=== PATIENT | male | born 1960 | race African-American/Black ===

== ENCOUNTER 2022-08-16 12:24 | Inpatient (IN) | payer OTHER ==
[2022-08-16 16:52] VITALS: BMI 34.5
[2022-08-16] MEDS ORDERED: guaiFENesin 200 MG/10 ML 10 ML UNIT-DOSE CUPS PO PRN (18:27)
[2022-08-16] MEDS ORDERED: hydrOXYzine PAMOATE 25 MG CAPSULE (FP) PO PRN (18:27)
[2022-08-16] MEDS ORDERED: POLYETHYLENE GLYCOL (HEALTHYLAX) 3350 17 GM PACKET PO PRN (18:27)
[2022-08-16] MEDS ORDERED: MAG HYDROX/AL HYDROX/SIMETH 30 ML UNIT-DOSE CUP PO PRN (18:27)
[2022-08-16] MEDS ORDERED: LOPERAMIDE HCL 2 MG CAPSULE PO PRN (18:27)
[2022-08-16] MEDS ORDERED: ACETAMINOPHEN 325 MG TABLET (FP) PO PRN (18:27)
[2022-08-16] MEDS ORDERED: MAGNESIUM HYDROX 2400MG/30ML ORAL SUSPENSION 30 ML CUP PO PRN (18:27)
[2022-08-16] MEDS ORDERED: P-EPHED 60MG/TRIPROLIDI 2.5MG TABLET PO PRN (18:27)
[2022-08-16] MEDS ORDERED: BENZOCAINE/MENTHOL (CHLORASEPTIC ) LOZENGE MM PRN (18:27)
[2022-08-17] MEDS ORDERED: ATORVASTATIN CA 40 MG TABLET (FP) ONE ×2 (00:20→19:54)
[2022-08-17] MEDS: ATORVASTATIN CA 80 MG TABLET (FP) PO SCH ×2 (00:40→21:37)
[2022-08-17] MEDS: hydrALAZINE HCL 50 MG TABLET (FP) PO SCH ×4 (00:43→21:37)
[2022-08-17] MEDS: MELATONIN 5 MG TABLETS PO SCH ×2 (00:44→21:38)
[2022-08-17] MEDS: THIAMINE HCL 100 MG TABLET (FP) PO SCH ×2 (00:45→21:37)
[2022-08-17] MEDS ORDERED: TUBERCULIN PPD 5 TU/0.1ML VIAL ID ONE (00:46)
[2022-08-17] MEDS ORDERED: POTASSIUM CHLORIDE TABS 10 MEQ TABLET.ER (FP) PO SCH (10:00)
[2022-08-17] MEDS: PRENATAL VITAMINS W/ FOLIC ACID TABLET (FP) PO SCH (10:16)
[2022-08-17] MEDS: ASPIRIN 81 MG CHEWABLE TABLETS PO SCH (10:17)
[2022-08-17] MEDS: amLODIPine BESYLATE 10 MG TABLET (FP) PO SCH (10:17)
[2022-08-17] MEDS: TAMSULOSIN HCL 0.4 MG CAP PO SCH (10:17)
[2022-08-17] MEDS: LISINOPRIL 20 MG TABLET PO SCH (10:17)
[2022-08-17 11:16] LABS: HEMATOCRIT 39.1 % (35.4-49); HEMOGLOBIN 13.1 GM/dL (11.7-16.9); MCH 29.1 pg (25.7-33.7); MCHC 33.4 g/dl (32.0-35.9); MEAN CELL VOLUME 86.9 fl (80-96); MEAN PLT VOLUME 8.2 fl (7.5-11.1); PLATELET COUNT 203 10^3/uL (134-434); RDW 14.4 % (11.9-15.9); WHITE BLOOD COUNT 5.8 K/mm3 (4.0-10.0)
[2022-08-17 11:19] LABS: PH,URINE 5.5 (5.0-8.0); URINE APPEARANCE CLEAR; URINE BILIRUBIN NEGATIVE (NEGATIVE); URINE COLOR YELLOW; URINE GLUCOSE (UA) NEGATIVE (NEGATIVE); URINE KETONE NEGATIVE (NEGATIVE); URINE LEUK ESTERASE NEGATIVE (NEGATIVE); URINE NITRITE NEGATIVE (NEGATIVE); URINE PROTEIN TRACE (NEGATIVE)
[2022-08-17 11:30] LABS: ALBUMIN 3.6 g/dl (3.4-5.0)
[2022-08-17 11:33] LABS: CREATININE 2.4 mg/dL (0.55-1.3)
[2022-08-17 11:34] LABS: URIC ACID 7.6 mg/dL (2.6-7.2)
[2022-08-17] MEDS: ALLOPURINOL 100 MG TABLET (FP) PO SCH (11:34)
[2022-08-17 11:35] LABS: BILIRUBIN,TOTAL 0.8 mg/dL (0.2-1); TOT PROT 7.3 g/dl (6.4-8.2)
[2022-08-17] MEDS: POTASSIUM CHLORIDE TABS 20 MEQ TABLET.ER (FP) PO SCH (11:36)
[2022-08-18] MEDS: hydrALAZINE HCL 50 MG TABLET (FP) PO SCH ×4 (06:10→23:23)
[2022-08-18] MEDS: amLODIPine BESYLATE 10 MG TABLET (FP) PO SCH (09:47)
[2022-08-18] MEDS: TAMSULOSIN HCL 0.4 MG CAP PO SCH (09:47)
[2022-08-18] MEDS: PRENATAL VITAMINS W/ FOLIC ACID TABLET (FP) PO SCH (09:47)
[2022-08-18] MEDS: ASPIRIN 81 MG CHEWABLE TABLETS PO SCH (09:48)
[2022-08-18] MEDS: LISINOPRIL 20 MG TABLET PO SCH (09:48)
[2022-08-18] MEDS: POTASSIUM CHLORIDE TABS 20 MEQ TABLET.ER (FP) PO SCH (09:48)
[2022-08-18] MEDS: ALLOPURINOL 100 MG TABLET (FP) PO SCH (09:48)
[2022-08-18] MEDS ORDERED: ATORVASTATIN CA 40 MG TABLET (FP) ONE (20:32)
[2022-08-18] MEDS: MELATONIN 5 MG TABLETS PO SCH ×2 (21:23→23:23)
[2022-08-18] MEDS: THIAMINE HCL 100 MG TABLET (FP) PO SCH ×2 (21:23→23:23)
[2022-08-18] MEDS: ATORVASTATIN CA 80 MG TABLET (FP) PO SCH ×2 (21:23→23:23)
[2022-08-19] MEDS: hydrALAZINE HCL 50 MG TABLET (FP) PO SCH ×3 (07:03→21:53)
[2022-08-19] MEDS: PRENATAL VITAMINS W/ FOLIC ACID TABLET (FP) PO SCH (10:29)
[2022-08-19] MEDS: LISINOPRIL 20 MG TABLET PO SCH (10:30)
[2022-08-19] MEDS: amLODIPine BESYLATE 10 MG TABLET (FP) PO SCH (10:30)
[2022-08-19] MEDS: ASPIRIN 81 MG CHEWABLE TABLETS PO SCH (10:30)
[2022-08-19] MEDS: POTASSIUM CHLORIDE TABS 20 MEQ TABLET.ER (FP) PO SCH (10:30)
[2022-08-19] MEDS: TAMSULOSIN HCL 0.4 MG CAP PO SCH (10:30)
[2022-08-19] MEDS: SERTRALINE HCL 50 MG TABLET (FP) PO SCH (10:30)
[2022-08-19] MEDS: ALLOPURINOL 100 MG TABLET (FP) PO SCH (10:31)
[2022-08-19] MEDS: MELATONIN 5 MG TABLETS PO SCH (21:53)
[2022-08-19] MEDS: THIAMINE HCL 100 MG TABLET (FP) PO SCH (21:53)
[2022-08-19] MEDS: ATORVASTATIN CA 80 MG TABLET (FP) PO SCH (21:54)
[2022-08-20] MEDS: hydrALAZINE HCL 50 MG TABLET (FP) PO SCH ×3 (06:24→21:24)
[2022-08-20] MEDS: ASPIRIN 81 MG CHEWABLE TABLETS PO SCH (10:10)
[2022-08-20] MEDS: TAMSULOSIN HCL 0.4 MG CAP PO SCH (10:10)
[2022-08-20] MEDS: POTASSIUM CHLORIDE TABS 20 MEQ TABLET.ER (FP) PO SCH (10:10)
[2022-08-20] MEDS: PRENATAL VITAMINS W/ FOLIC ACID TABLET (FP) PO SCH (10:11)
[2022-08-20] MEDS: LISINOPRIL 20 MG TABLET PO SCH (10:11)
[2022-08-20] MEDS: ALLOPURINOL 100 MG TABLET (FP) PO SCH (10:11)
[2022-08-20] MEDS: amLODIPine BESYLATE 10 MG TABLET (FP) PO SCH (10:11)
[2022-08-20] MEDS: SERTRALINE HCL 50 MG TABLET (FP) PO SCH (10:11)
[2022-08-20] MEDS ORDERED: ATORVASTATIN CA 40 MG TABLET (FP) ONE (20:11)
[2022-08-20] MEDS: ATORVASTATIN CA 80 MG TABLET (FP) PO SCH (21:24)
[2022-08-20] MEDS: MELATONIN 5 MG TABLETS PO SCH (21:24)
[2022-08-20] MEDS: THIAMINE HCL 100 MG TABLET (FP) PO SCH (21:24)
[2022-08-21] MEDS: hydrALAZINE HCL 50 MG TABLET (FP) PO SCH ×3 (07:19→21:26)
[2022-08-21] MEDS: POTASSIUM CHLORIDE TABS 20 MEQ TABLET.ER (FP) PO SCH (09:56)
[2022-08-21] MEDS: PRENATAL VITAMINS W/ FOLIC ACID TABLET (FP) PO SCH (09:56)
[2022-08-21] MEDS: ASPIRIN 81 MG CHEWABLE TABLETS PO SCH (09:56)
[2022-08-21] MEDS: LISINOPRIL 20 MG TABLET PO SCH (09:57)
[2022-08-21] MEDS: SERTRALINE HCL 50 MG TABLET (FP) PO SCH (09:57)
[2022-08-21] MEDS: amLODIPine BESYLATE 10 MG TABLET (FP) PO SCH (09:57)
[2022-08-21] MEDS: TAMSULOSIN HCL 0.4 MG CAP PO SCH (09:57)
[2022-08-21] MEDS: ALLOPURINOL 100 MG TABLET (FP) PO SCH (10:55)
[2022-08-21] MEDS: predniSONE 10 MG TABLET (UD) PO SCH (12:40)
[2022-08-21] MEDS ORDERED: ATORVASTATIN CA 40 MG TABLET (FP) ONE (20:06)
[2022-08-21] MEDS: MELATONIN 5 MG TABLETS PO SCH (21:25)
[2022-08-21] MEDS: THIAMINE HCL 100 MG TABLET (FP) PO SCH (21:26)
[2022-08-21] MEDS: ATORVASTATIN CA 80 MG TABLET (FP) PO SCH (21:26)
[2022-08-22] MEDS: hydrALAZINE HCL 50 MG TABLET (FP) PO SCH ×3 (06:09→22:09)
[2022-08-22] MEDS: TAMSULOSIN HCL 0.4 MG CAP PO SCH (09:49)
[2022-08-22] MEDS: amLODIPine BESYLATE 10 MG TABLET (FP) PO SCH (09:49)
[2022-08-22] MEDS: POTASSIUM CHLORIDE TABS 20 MEQ TABLET.ER (FP) PO SCH (09:49)
[2022-08-22] MEDS: predniSONE 10 MG TABLET (UD) PO SCH (09:49)
[2022-08-22] MEDS: ASPIRIN 81 MG CHEWABLE TABLETS PO SCH (09:49)
[2022-08-22] MEDS: SERTRALINE HCL 50 MG TABLET (FP) PO SCH (09:49)
[2022-08-22] MEDS: ALLOPURINOL 100 MG TABLET (FP) PO SCH (09:49)
[2022-08-22] MEDS: PRENATAL VITAMINS W/ FOLIC ACID TABLET (FP) PO SCH (09:50)
[2022-08-22] MEDS: LISINOPRIL 20 MG TABLET PO SCH (09:50)
[2022-08-22] MEDS ORDERED: ATORVASTATIN CA 40 MG TABLET (FP) ONE (20:17)
[2022-08-22] MEDS: ATORVASTATIN CA 80 MG TABLET (FP) PO SCH (22:09)
[2022-08-22] MEDS: THIAMINE HCL 100 MG TABLET (FP) PO SCH (22:09)
[2022-08-22] MEDS: MELATONIN 5 MG TABLETS PO SCH (22:10)
[2022-08-23] MEDS: hydrALAZINE HCL 50 MG TABLET (FP) PO SCH ×3 (06:23→21:44)
[2022-08-23] MEDS: POTASSIUM CHLORIDE TABS 20 MEQ TABLET.ER (FP) PO SCH (10:21)
[2022-08-23] MEDS: LISINOPRIL 20 MG TABLET PO SCH (10:21)
[2022-08-23] MEDS: PRENATAL VITAMINS W/ FOLIC ACID TABLET (FP) PO SCH (10:21)
[2022-08-23] MEDS: amLODIPine BESYLATE 10 MG TABLET (FP) PO SCH (10:21)
[2022-08-23] MEDS: ASPIRIN 81 MG CHEWABLE TABLETS PO SCH (10:22)
[2022-08-23] MEDS: SERTRALINE HCL 50 MG TABLET (FP) PO SCH (10:22)
[2022-08-23] MEDS: TAMSULOSIN HCL 0.4 MG CAP PO SCH (10:22)
[2022-08-23] MEDS: ALLOPURINOL 100 MG TABLET (FP) PO SCH (10:22)
[2022-08-23] MEDS: predniSONE 10 MG TABLET (UD) PO SCH (10:24)
[2022-08-23] MEDS ORDERED: predniSONE 20 MG TABLET (UD) PO ONE (12:00)
[2022-08-23 15:39] LABS: CALCIUM 8.5 mg/dL (8.5-10.1)
[2022-08-23 15:40] LABS: BLOOD UREA NITROGEN 29.7 mg/dL (7-18)
[2022-08-23 15:42] LABS: ALBUMIN 3.2 g/dl (3.4-5.0)
[2022-08-23 15:43] LABS: CREATININE 1.7 mg/dL (0.55-1.3)
[2022-08-23 15:44] LABS: BILIRUBIN,TOTAL 0.9 mg/dL (0.2-1)
[2022-08-23 15:45] LABS: TOT PROT 6.7 g/dl (6.4-8.2)
[2022-08-23] MEDS ORDERED: ATORVASTATIN CA 40 MG TABLET (FP) ONE (19:31)
[2022-08-23] MEDS: MELATONIN 5 MG TABLETS PO SCH (21:44)
[2022-08-23] MEDS: THIAMINE HCL 100 MG TABLET (FP) PO SCH (21:45)
[2022-08-23] MEDS: ATORVASTATIN CA 80 MG TABLET (FP) PO SCH (21:45)
[2022-08-24] MEDS: hydrALAZINE HCL 50 MG TABLET (FP) PO SCH ×3 (06:35→22:00)
[2022-08-24] MEDS ORDERED: predniSONE 5 MG TABLET (UD) PO ONE (10:00)
[2022-08-24] MEDS: PRENATAL VITAMINS W/ FOLIC ACID TABLET (FP) PO SCH (10:24)
[2022-08-24] MEDS: ALLOPURINOL 100 MG TABLET (FP) PO SCH (10:25)
[2022-08-24] MEDS: TAMSULOSIN HCL 0.4 MG CAP PO SCH (10:25)
[2022-08-24] MEDS: LISINOPRIL 20 MG TABLET PO SCH (10:25)
[2022-08-24] MEDS: SERTRALINE HCL 50 MG TABLET (FP) PO SCH (10:25)
[2022-08-24] MEDS: POTASSIUM CHLORIDE TABS 20 MEQ TABLET.ER (FP) PO SCH (10:25)
[2022-08-24] MEDS: ASPIRIN COATED 81 MG TABLET.EC PO SCH (10:25)
[2022-08-24] MEDS: amLODIPine BESYLATE 10 MG TABLET (FP) PO SCH (10:25)
[2022-08-24] MEDS: ATORVASTATIN CA 80 MG TABLET (FP) PO SCH (22:00)
[2022-08-24] MEDS: THIAMINE HCL 100 MG TABLET (FP) PO SCH (22:00)
[2022-08-24] MEDS: MELATONIN 5 MG TABLETS PO SCH (22:00)
[2022-08-25] MEDS: hydrALAZINE HCL 50 MG TABLET (FP) PO SCH ×3 (06:55→21:25)
[2022-08-25] MEDS ORDERED: predniSONE 10 MG TABLET (UD) PO ONE (10:00)
[2022-08-25] MEDS: SERTRALINE HCL 50 MG TABLET (FP) PO SCH (10:16)
[2022-08-25] MEDS: PRENATAL VITAMINS W/ FOLIC ACID TABLET (FP) PO SCH (10:17)
[2022-08-25] MEDS: ALLOPURINOL 100 MG TABLET (FP) PO SCH (10:17)
[2022-08-25] MEDS: ASPIRIN COATED 81 MG TABLET.EC PO SCH (10:17)
[2022-08-25] MEDS: amLODIPine BESYLATE 10 MG TABLET (FP) PO SCH (10:17)
[2022-08-25] MEDS: TAMSULOSIN HCL 0.4 MG CAP PO SCH (10:17)
[2022-08-25] MEDS: POTASSIUM CHLORIDE TABS 20 MEQ TABLET.ER (FP) PO SCH (10:17)
[2022-08-25] MEDS: LISINOPRIL 20 MG TABLET PO SCH (10:17)
[2022-08-25] MEDS ORDERED: ATORVASTATIN CA 40 MG TABLET (FP) ONE (19:31)
[2022-08-25] MEDS: THIAMINE HCL 100 MG TABLET (FP) PO SCH (21:23)
[2022-08-25] MEDS: ATORVASTATIN CA 80 MG TABLET (FP) PO SCH (21:24)
[2022-08-25] MEDS: MELATONIN 5 MG TABLETS PO SCH (21:24)
[2022-08-26] MEDS: hydrALAZINE HCL 50 MG TABLET (FP) PO SCH ×3 (07:28→21:38)
[2022-08-26] MEDS ORDERED: predniSONE 5 MG TABLET (UD) PO ONE (10:00)
[2022-08-26] MEDS: LISINOPRIL 20 MG TABLET PO SCH (10:34)
[2022-08-26] MEDS: amLODIPine BESYLATE 10 MG TABLET (FP) PO SCH (10:34)
[2022-08-26] MEDS: SERTRALINE HCL 50 MG TABLET (FP) PO SCH (10:34)
[2022-08-26] MEDS: TAMSULOSIN HCL 0.4 MG CAP PO SCH (10:34)
[2022-08-26] MEDS: ASPIRIN COATED 81 MG TABLET.EC PO SCH (10:34)
[2022-08-26] MEDS: POTASSIUM CHLORIDE TABS 20 MEQ TABLET.ER (FP) PO SCH (10:34)
[2022-08-26] MEDS: PRENATAL VITAMINS W/ FOLIC ACID TABLET (FP) PO SCH (10:34)
[2022-08-26] MEDS: ALLOPURINOL 100 MG TABLET (FP) PO SCH (10:50)
[2022-08-26] MEDS ORDERED: ATORVASTATIN CA 40 MG TABLET (FP) ONE (20:47)
[2022-08-26] MEDS: THIAMINE HCL 100 MG TABLET (FP) PO SCH (21:38)
[2022-08-26] MEDS: MELATONIN 5 MG TABLETS PO SCH (21:39)
[2022-08-26] MEDS: ATORVASTATIN CA 80 MG TABLET (FP) PO SCH (21:39)
[2022-08-27] MEDS: hydrALAZINE HCL 50 MG TABLET (FP) PO SCH ×3 (06:04→21:45)
[2022-08-27] MEDS: POTASSIUM CHLORIDE TABS 20 MEQ TABLET.ER (FP) PO SCH (09:55)
[2022-08-27] MEDS: PRENATAL VITAMINS W/ FOLIC ACID TABLET (FP) PO SCH (09:55)
[2022-08-27] MEDS: LISINOPRIL 20 MG TABLET PO SCH (09:55)
[2022-08-27] MEDS: SERTRALINE HCL 50 MG TABLET (FP) PO SCH (09:55)
[2022-08-27] MEDS: amLODIPine BESYLATE 10 MG TABLET (FP) PO SCH (09:56)
[2022-08-27] MEDS: TAMSULOSIN HCL 0.4 MG CAP PO SCH (09:56)
[2022-08-27] MEDS: ASPIRIN COATED 81 MG TABLET.EC PO SCH (09:56)
[2022-08-27] MEDS: ALLOPURINOL 100 MG TABLET (FP) PO SCH (09:56)
[2022-08-27] MEDS ORDERED: ATORVASTATIN CA 40 MG TABLET (FP) ONE (20:28)
[2022-08-27] MEDS: ATORVASTATIN CA 80 MG TABLET (FP) PO SCH (21:45)
[2022-08-27] MEDS: THIAMINE HCL 100 MG TABLET (FP) PO SCH (21:45)
[2022-08-27] MEDS: MELATONIN 5 MG TABLETS PO SCH (21:46)
[2022-08-28] MEDS: hydrALAZINE HCL 50 MG TABLET (FP) PO SCH ×3 (06:13→21:23)
[2022-08-28] MEDS: PRENATAL VITAMINS W/ FOLIC ACID TABLET (FP) PO SCH (09:54)
[2022-08-28] MEDS: SERTRALINE HCL 50 MG TABLET (FP) PO SCH (09:55)
[2022-08-28] MEDS: amLODIPine BESYLATE 10 MG TABLET (FP) PO SCH (09:55)
[2022-08-28] MEDS: ASPIRIN COATED 81 MG TABLET.EC PO SCH (09:55)
[2022-08-28] MEDS: POTASSIUM CHLORIDE TABS 20 MEQ TABLET.ER (FP) PO SCH (09:55)
[2022-08-28] MEDS: LISINOPRIL 20 MG TABLET PO SCH (09:56)
[2022-08-28] MEDS: TAMSULOSIN HCL 0.4 MG CAP PO SCH (09:56)
[2022-08-28] MEDS: ALLOPURINOL 100 MG TABLET (FP) PO SCH (09:57)
[2022-08-28] MEDS ORDERED: ATORVASTATIN CA 40 MG TABLET (FP) ONE (20:24)
[2022-08-28] MEDS: ATORVASTATIN CA 80 MG TABLET (FP) PO SCH (21:21)
[2022-08-28] MEDS: MELATONIN 5 MG TABLETS PO SCH (21:21)
[2022-08-28] MEDS: THIAMINE HCL 100 MG TABLET (FP) PO SCH (21:22)
[2022-08-29] MEDS: hydrALAZINE HCL 50 MG TABLET (FP) PO SCH ×3 (05:42→21:14)
[2022-08-29] MEDS: ASPIRIN COATED 81 MG TABLET.EC PO SCH (09:59)
[2022-08-29] MEDS: PRENATAL VITAMINS W/ FOLIC ACID TABLET (FP) PO SCH (10:00)
[2022-08-29] MEDS: POTASSIUM CHLORIDE TABS 20 MEQ TABLET.ER (FP) PO SCH (10:00)
[2022-08-29] MEDS: SERTRALINE HCL 50 MG TABLET (FP) PO SCH (10:00)
[2022-08-29] MEDS: amLODIPine BESYLATE 10 MG TABLET (FP) PO SCH (10:00)
[2022-08-29] MEDS: ALLOPURINOL 100 MG TABLET (FP) PO SCH (10:00)
[2022-08-29] MEDS: LISINOPRIL 20 MG TABLET PO SCH (10:00)
[2022-08-29] MEDS: TAMSULOSIN HCL 0.4 MG CAP PO SCH (10:00)
[2022-08-29] MEDS: ATORVASTATIN CA 80 MG TABLET (FP) PO SCH (21:14)
[2022-08-29] MEDS: THIAMINE HCL 100 MG TABLET (FP) PO SCH (21:14)
[2022-08-29] MEDS: MELATONIN 5 MG TABLETS PO SCH (21:14)
[2022-08-30] MEDS: hydrALAZINE HCL 50 MG TABLET (FP) PO SCH ×3 (06:14→21:34)
[2022-08-30] MEDS: ASPIRIN COATED 81 MG TABLET.EC PO SCH (09:48)
[2022-08-30] MEDS: amLODIPine BESYLATE 10 MG TABLET (FP) PO SCH (09:48)
[2022-08-30] MEDS: PRENATAL VITAMINS W/ FOLIC ACID TABLET (FP) PO SCH (09:48)
[2022-08-30] MEDS: TAMSULOSIN HCL 0.4 MG CAP PO SCH (09:49)
[2022-08-30] MEDS: LISINOPRIL 20 MG TABLET PO SCH (09:49)
[2022-08-30] MEDS: SERTRALINE HCL 50 MG TABLET (FP) PO SCH (09:49)
[2022-08-30] MEDS: ALLOPURINOL 100 MG TABLET (FP) PO SCH (09:49)
[2022-08-30] MEDS: POTASSIUM CHLORIDE TABS 20 MEQ TABLET.ER (FP) PO SCH (09:49)
[2022-08-30] MEDS ORDERED: ATORVASTATIN CA 40 MG TABLET (FP) ONE (20:10)
[2022-08-30] MEDS: ATORVASTATIN CA 80 MG TABLET (FP) PO SCH (21:34)
[2022-08-30] MEDS: THIAMINE HCL 100 MG TABLET (FP) PO SCH (21:34)
[2022-08-30] MEDS: MELATONIN 5 MG TABLETS PO SCH (21:34)
[2022-08-31] MEDS: hydrALAZINE HCL 50 MG TABLET (FP) PO SCH ×3 (05:57→21:28)
[2022-08-31] MEDS: SERTRALINE HCL 50 MG TABLET (FP) PO SCH (10:02)
[2022-08-31] MEDS: LISINOPRIL 20 MG TABLET PO SCH (10:03)
[2022-08-31] MEDS: POTASSIUM CHLORIDE TABS 20 MEQ TABLET.ER (FP) PO SCH (10:03)
[2022-08-31] MEDS: amLODIPine BESYLATE 10 MG TABLET (FP) PO SCH (10:03)
[2022-08-31] MEDS: PRENATAL VITAMINS W/ FOLIC ACID TABLET (FP) PO SCH (10:03)
[2022-08-31] MEDS: ASPIRIN COATED 81 MG TABLET.EC PO SCH (10:03)
[2022-08-31] MEDS: ALLOPURINOL 100 MG TABLET (FP) PO SCH (10:04)
[2022-08-31] MEDS: TAMSULOSIN HCL 0.4 MG CAP PO SCH (10:05)
[2022-08-31] MEDS: ATORVASTATIN CA 80 MG TABLET (FP) PO SCH (21:28)
[2022-08-31] MEDS: MELATONIN 5 MG TABLETS PO SCH (21:28)
[2022-08-31] MEDS: THIAMINE HCL 100 MG TABLET (FP) PO SCH (21:28)
[2022-09-01] MEDS: hydrALAZINE HCL 50 MG TABLET (FP) PO SCH ×3 (06:01→21:28)
[2022-09-01] MEDS: ASPIRIN COATED 81 MG TABLET.EC PO SCH (09:54)
[2022-09-01] MEDS: SERTRALINE HCL 50 MG TABLET (FP) PO SCH (09:54)
[2022-09-01] MEDS: ALLOPURINOL 100 MG TABLET (FP) PO SCH (09:54)
[2022-09-01] MEDS: LISINOPRIL 20 MG TABLET PO SCH (09:54)
[2022-09-01] MEDS: TAMSULOSIN HCL 0.4 MG CAP PO SCH (09:54)
[2022-09-01] MEDS: POTASSIUM CHLORIDE TABS 20 MEQ TABLET.ER (FP) PO SCH (09:54)
[2022-09-01] MEDS: amLODIPine BESYLATE 10 MG TABLET (FP) PO SCH (09:54)
[2022-09-01] MEDS: PRENATAL VITAMINS W/ FOLIC ACID TABLET (FP) PO SCH (09:55)
[2022-09-01] MEDS ORDERED: ATORVASTATIN CA 40 MG TABLET (FP) ONE (19:49)
[2022-09-01] MEDS: ATORVASTATIN CA 80 MG TABLET (FP) PO SCH (21:28)
[2022-09-01] MEDS: THIAMINE HCL 100 MG TABLET (FP) PO SCH (21:28)
[2022-09-01] MEDS: MELATONIN 5 MG TABLETS PO SCH (21:28)
[2022-09-02] MEDS: hydrALAZINE HCL 50 MG TABLET (FP) PO SCH ×3 (06:07→21:37)
[2022-09-02] MEDS: PRENATAL VITAMINS W/ FOLIC ACID TABLET (FP) PO SCH (09:54)
[2022-09-02] MEDS: SERTRALINE HCL 50 MG TABLET (FP) PO SCH (09:54)
[2022-09-02] MEDS: POTASSIUM CHLORIDE TABS 20 MEQ TABLET.ER (FP) PO SCH (09:54)
[2022-09-02] MEDS: ALLOPURINOL 100 MG TABLET (FP) PO SCH (09:55)
[2022-09-02] MEDS: ASPIRIN COATED 81 MG TABLET.EC PO SCH (09:55)
[2022-09-02] MEDS: LISINOPRIL 20 MG TABLET PO SCH (09:55)
[2022-09-02] MEDS: amLODIPine BESYLATE 10 MG TABLET (FP) PO SCH (09:55)
[2022-09-02] MEDS: TAMSULOSIN HCL 0.4 MG CAP PO SCH (09:55)
[2022-09-02] MEDS: ATORVASTATIN CA 80 MG TABLET (FP) PO SCH (21:37)
[2022-09-02] MEDS: MELATONIN 5 MG TABLETS PO SCH (21:37)
[2022-09-02] MEDS: THIAMINE HCL 100 MG TABLET (FP) PO SCH (21:37)
[2022-09-03] MEDS: hydrALAZINE HCL 50 MG TABLET (FP) PO SCH ×3 (06:11→21:17)
[2022-09-03] MEDS: ASPIRIN COATED 81 MG TABLET.EC PO SCH (09:48)
[2022-09-03] MEDS: SERTRALINE HCL 50 MG TABLET (FP) PO SCH (09:48)
[2022-09-03] MEDS: LISINOPRIL 20 MG TABLET PO SCH (09:48)
[2022-09-03] MEDS: amLODIPine BESYLATE 10 MG TABLET (FP) PO SCH (09:48)
[2022-09-03] MEDS: POTASSIUM CHLORIDE TABS 20 MEQ TABLET.ER (FP) PO SCH (09:48)
[2022-09-03] MEDS: ALLOPURINOL 100 MG TABLET (FP) PO SCH (09:48)
[2022-09-03] MEDS: TAMSULOSIN HCL 0.4 MG CAP PO SCH (09:48)
[2022-09-03] MEDS: PRENATAL VITAMINS W/ FOLIC ACID TABLET (FP) PO SCH (09:48)
[2022-09-03] MEDS: MELATONIN 5 MG TABLETS PO SCH (21:17)
[2022-09-03] MEDS: THIAMINE HCL 100 MG TABLET (FP) PO SCH (21:17)
[2022-09-03] MEDS: ATORVASTATIN CA 80 MG TABLET (FP) PO SCH (21:17)
[2022-09-04] MEDS: hydrALAZINE HCL 50 MG TABLET (FP) PO SCH ×3 (06:28→21:20)
[2022-09-04] MEDS: POTASSIUM CHLORIDE TABS 20 MEQ TABLET.ER (FP) PO SCH (10:18)
[2022-09-04] MEDS: TAMSULOSIN HCL 0.4 MG CAP PO SCH (10:18)
[2022-09-04] MEDS: ASPIRIN COATED 81 MG TABLET.EC PO SCH (10:18)
[2022-09-04] MEDS: PRENATAL VITAMINS W/ FOLIC ACID TABLET (FP) PO SCH (10:19)
[2022-09-04] MEDS: LISINOPRIL 20 MG TABLET PO SCH (10:19)
[2022-09-04] MEDS: amLODIPine BESYLATE 10 MG TABLET (FP) PO SCH (10:19)
[2022-09-04] MEDS: ALLOPURINOL 100 MG TABLET (FP) PO SCH (10:20)
[2022-09-04] MEDS: SERTRALINE HCL 50 MG TABLET (FP) PO SCH (10:20)
[2022-09-04] MEDS ORDERED: ATORVASTATIN CA 40 MG TABLET (FP) ONE (20:44)
[2022-09-04] MEDS: THIAMINE HCL 100 MG TABLET (FP) PO SCH (21:20)
[2022-09-04] MEDS: MELATONIN 5 MG TABLETS PO SCH (21:20)
[2022-09-04] MEDS: ATORVASTATIN CA 80 MG TABLET (FP) PO SCH (21:21)
[2022-09-05] MEDS: hydrALAZINE HCL 50 MG TABLET (FP) PO SCH ×3 (06:05→21:23)
[2022-09-05] MEDS: ASPIRIN COATED 81 MG TABLET.EC PO SCH (10:19)
[2022-09-05] MEDS: TAMSULOSIN HCL 0.4 MG CAP PO SCH (10:19)
[2022-09-05] MEDS: PRENATAL VITAMINS W/ FOLIC ACID TABLET (FP) PO SCH (10:20)
[2022-09-05] MEDS: amLODIPine BESYLATE 10 MG TABLET (FP) PO SCH (10:20)
[2022-09-05] MEDS: LISINOPRIL 20 MG TABLET PO SCH (10:20)
[2022-09-05] MEDS: ALLOPURINOL 100 MG TABLET (FP) PO SCH (10:20)
[2022-09-05] MEDS: SERTRALINE HCL 50 MG TABLET (FP) PO SCH (10:20)
[2022-09-05] MEDS: POTASSIUM CHLORIDE TABS 20 MEQ TABLET.ER (FP) PO SCH (10:20)
[2022-09-05 20:42] VITALS: RESP 16
[2022-09-05] MEDS: THIAMINE HCL 100 MG TABLET (FP) PO SCH (21:23)
[2022-09-05] MEDS: ATORVASTATIN CA 80 MG TABLET (FP) PO SCH (21:23)
[2022-09-05] MEDS: MELATONIN 5 MG TABLETS PO SCH (21:23)
[2022-09-05] MEDS: BACITRACIN ZINC 15 GM TUBE TOPICAL OINTMENT TP SCH (21:24)
[2022-09-06] MEDS: hydrALAZINE HCL 50 MG TABLET (FP) PO SCH (06:25)
[2022-09-06 07:11] VITALS: BP 149/85; PULSE 65; TEMP 96.4
[2022-09-06] MEDS: TAMSULOSIN HCL 0.4 MG CAP PO SCH (09:45)
[2022-09-06] MEDS: LISINOPRIL 20 MG TABLET PO SCH (09:45)
[2022-09-06] MEDS: SERTRALINE HCL 50 MG TABLET (FP) PO SCH (09:45)
[2022-09-06] MEDS: ASPIRIN COATED 81 MG TABLET.EC PO SCH (09:45)
[2022-09-06] MEDS: amLODIPine BESYLATE 10 MG TABLET (FP) PO SCH (09:45)
[2022-09-06] MEDS: POTASSIUM CHLORIDE TABS 20 MEQ TABLET.ER (FP) PO SCH (09:45)
[2022-09-06] MEDS: ALLOPURINOL 100 MG TABLET (FP) PO SCH (09:46)
[2022-09-06] MEDS: PRENATAL VITAMINS W/ FOLIC ACID TABLET (FP) PO SCH (09:47)
[2022-09-06] MEDS: BACITRACIN ZINC 15 GM TUBE TOPICAL OINTMENT TP SCH (09:48)
== END 2022-09-06 10:00 | disposition other institution (70) | DRG 772 ==
LOC: YASAS 12:24 → Y3N 23:18 → Y5N 23:31
PROVIDERS: ADMIT Allergy & Immunology; ATTEND Allergy & Immunology
PROC: HZ42ZZZ Group Counseling for Substance Abuse Treatment, Cognitive-Behavioral (ICD-10-PCS; principal; 2022-08-16)
DX: F14.20 Cocaine dependence, uncomplicated (principal); F19.282 Other psychoactive substance dependence with psychoactive substance-induced sleep disorder; F19.24 Other psychoactive substance dependence with psychoactive substance-induced mood disorder; F32.A Depression, unspecified; E78.5 Hyperlipidemia, unspecified; I25.10 Atherosclerotic heart disease of native coronary artery without angina pectoris; I10 Essential (primary) hypertension; Z95.1 Presence of aortocoronary bypass graft; Z95.5 Presence of coronary angioplasty implant and graft; M1A.09X0 Idiopathic chronic gout, multiple sites, without tophus (tophi); N40.1 Benign prostatic hyperplasia with lower urinary tract symptoms; R35.0 Frequency of micturition; Z99.89 Dependence on other enabling machines and devices; Z59.01 Sheltered homelessness; Z88.0 Allergy status to penicillin; W07.XXXA Fall from chair, initial encounter; Y92.238 Other place in hospital as the place of occurrence of the external cause
CPT/HCPCS: 36415; 80053; 81003; 84550; 85027; 86780; 93005; 93010; C9803-CS; U0003; U0005

== ENCOUNTER 2024-02-10 17:09 | Inpatient (IN) | payer OTHER ==
[2024-02-10 18:23] VITALS: BMI 28.5
[2024-02-10] MEDS ORDERED: IBUPROFEN 400 MG TABLET (FP) PO PRN (19:27)
[2024-02-10] MEDS ORDERED: ACETAMINOPHEN 325 MG TABLET (FP) PO PRN (19:27)
[2024-02-10] MEDS ORDERED: BENZONATATE 200 MG CAPSULE PO PRN (19:27)
[2024-02-10] MEDS ORDERED: MAGNESIUM HYDROX 2400MG/30ML ORAL SUSPENSION 30 ML CUP PO PRN (19:27)
[2024-02-10] MEDS ORDERED: guaiFENesin 600 MG TABLET.ER (FP) PO PRN (19:27)
[2024-02-10] MEDS ORDERED: POLYETHYLENE GLYCOL (HEALTHYLAX) 3350 17 GM PACKET PO PRN (19:27)
[2024-02-10] MEDS ORDERED: IBUPROFEN 600 MG TABLET (FP) PO PRN (19:27)
[2024-02-10] MEDS ORDERED: MAG HYDROX/AL HYDROX/SIMETH 30 ML UNIT-DOSE CUP PO PRN (19:27)
[2024-02-10] MEDS ORDERED: NALOXONE (NARCAN) HCL 4 MG/0.1 ML SPRAY NS PRN (19:27)
[2024-02-10] MEDS ORDERED: BENZOCAINE/MENTHOL (CHLORASEPTIC ) LOZENGE MM PRN (19:27)
[2024-02-10] MEDS ORDERED: NALOXONE HCL 0.4 MG/ML VIAL IM PRN (19:27)
[2024-02-10] MEDS ORDERED: LOPERAMIDE HCL 2 MG CAPSULE PO PRN (19:27)
[2024-02-10] MEDS ORDERED: hydrOXYzine PAMOATE 25 MG CAPSULE (FP) PO PRN (19:27)
[2024-02-10] MEDS ORDERED: ONDANSETRON *ODT* 4 MG TABLET SL PRN (19:35)
[2024-02-10] MEDS ORDERED: METHOCARBAMOL 500 MG TABLET PO PRN (19:35)
[2024-02-10] MEDS ORDERED: MELATONIN 5 MG TABLETS PO ONE (20:00)
[2024-02-10] MEDS ORDERED: amLODIPine BESYLATE 5 MG TABLET (FP) ONE (20:33)
[2024-02-10] MEDS ORDERED: ASPIRIN 81 MG CHEWABLE TABLETS ONE (20:34)
[2024-02-10] MEDS ORDERED: PRENATAL VITAMINS W/ FOLIC ACID TABLET (FP) PO ONE (20:34)
[2024-02-10] MEDS: ASPIRIN COATED 81 MG TABLET.EC PO SCH (20:43)
[2024-02-10] MEDS: PRENATAL VITAMINS W/ FOLIC ACID TABLET (FP) PO SCH (20:43)
[2024-02-10] MEDS: amLODIPine BESYLATE 10 MG TABLET (FP) PO SCH (20:43)
[2024-02-10] MEDS: THIAMINE 100 MG TABLET PO SCH (21:47)
[2024-02-10] MEDS: ATORVASTATIN CA 40 MG TABLET (FP) PO SCH (21:48)
[2024-02-10] MEDS: hydrALAZINE HCL 50 MG TABLET (FP) PO SCH (23:43)
[2024-02-10] MEDS: ALLOPURINOL 100 MG TABLET (FP) PO SCH (23:43)
[2024-02-11] MEDS: TAMSULOSIN HCL 0.4 MG CAP PO SCH (09:09)
[2024-02-11] MEDS: LISINOPRIL 20 MG TABLET PO SCH (10:20)
[2024-02-11 11:53] LABS: PH,URINE 5.5 (5.0-8.0); URINE APPEARANCE CLEAR; URINE BILIRUBIN NEGATIVE (NEGATIVE); URINE COLOR YELLOW; URINE GLUCOSE (UA) NEGATIVE (NEGATIVE); URINE KETONE NEGATIVE (NEGATIVE); URINE LEUK ESTERASE NEGATIVE (NEGATIVE); URINE NITRITE NEGATIVE (NEGATIVE); URINE PROTEIN NEGATIVE (NEGATIVE); URINE UROBILINOGEN 0.2 mg/dL (0.2-1.0)
[2024-02-11 12:00] LABS: HEMATOCRIT 30.9 % (35.4-49); HEMOGLOBIN 10.8 GM/dL (11.7-16.9); MCH 31.1 pg (25.7-33.7); MEAN CELL VOLUME 89.1 fl (80-96); MEAN PLT VOLUME 8.4 fl (7.5-11.1); PLATELET COUNT 119 10^3/uL (134-434); RBC 3.47 M/mm3 (4.00-5.60); RDW 13.7 % (11.9-15.9); WHITE BLOOD COUNT 4.6 K/mm3 (4.0-10.0)
[2024-02-11 12:19] LABS: CHLORIDE 112 mmol/L (98-107); POTASSIUM 4.3 mmol/L (3.5-5.1); SODIUM 142 mmol/L (136-145)
[2024-02-11 12:33] LABS: SYPHILIS W/ RPR CONF NON-REACTIVE (NONREACTIVE)
[2024-02-11 12:53] LABS: ALBUMIN 3.1 g/dl (3.4-5.0); BLOOD UREA NITROGEN 39.9 mg/dL (7-18); CALCIUM 8.5 mg/dL (8.5-10.1)
[2024-02-11 12:54] LABS: ANION GAP 8 mmol/L (4-13); CO2 22 mmol/L (21-32); GLUCOSE,RANDOM 97 mg/dL (74-106)
[2024-02-11 12:57] LABS: CREATININE 1.9 mg/dL (0.55-1.3); SGOT/AST 44 U/L (15-37); SGPT/ALT 48 U/L (13-61)
[2024-02-11 12:58] LABS: BILIRUBIN,TOTAL 0.6 mg/dL (0.2-1); TOT PROT 6.4 g/dl (6.4-8.2)
[2024-02-11 12:59] LABS: ALK PHOS 73 U/L (45-117)
[2024-02-11] MEDS: MELATONIN 5 MG TABLETS PO SCH (22:30)
[2024-02-12] MEDS: SERTRALINE HCL 50 MG TABLET (FP) PO SCH (10:25)
[2024-02-12] MEDS: ASPIRIN 81 MG CHEWABLE TABLETS PO SCH (11:12)
[2024-02-12] MEDS: LISINOPRIL 10 MG TABLET PO ONE (11:12)
[2024-02-12] MEDS: TAMSULOSIN HCL 0.4 MG CAP PO SCH (21:14)
[2024-02-13] MEDS: LISINOPRIL 10 MG TABLET PO SCH (10:11)
[2024-02-16] MEDS ORDERED: ATORVASTATIN CA 20 MG TABLET (FP) ONE (21:13)
[2024-02-17] MEDS: PRENATAL VITAMINS W/ FOLIC ACID TABLET (FP) PO PRN (09:47)
[2024-02-24 06:48] VITALS: TEMP 97.1
[2024-02-24 09:16] VITALS: BP 135/87; PULSE 78; RESP 16
== END 2024-02-24 11:28 | disposition left against medical advice (07) | DRG 772 ==
LOC: YASAS 17:09 → Y3NR 20:48 → Y3W 02-11 12:05
PROVIDERS: ADMIT Allergy & Immunology; ATTEND Psychiatry & Neurology Pain Medicine
PROC: HZ42ZZZ Group Counseling for Substance Abuse Treatment, Cognitive-Behavioral (ICD-10-PCS; principal; 2024-02-10)
DX: F14.20 Cocaine dependence, uncomplicated (principal); F33.1 Major depressive disorder, recurrent, moderate; F19.982 Other psychoactive substance use, unspecified with psychoactive substance-induced sleep disorder; F19.94 Other psychoactive substance use, unspecified with psychoactive substance-induced mood disorder; F91.8 Other conduct disorders; I10 Essential (primary) hypertension; E78.5 Hyperlipidemia, unspecified; I25.10 Atherosclerotic heart disease of native coronary artery without angina pectoris; N40.0 Benign prostatic hyperplasia without lower urinary tract symptoms; M1A.09X0 Idiopathic chronic gout, multiple sites, without tophus (tophi); M19.90 Unspecified osteoarthritis, unspecified site; N18.9 Chronic kidney disease, unspecified; Z95.5 Presence of coronary angioplasty implant and graft; Z88.0 Allergy status to penicillin
CPT/HCPCS: 36415; 80053; 80305; 80307; 81003; 85027; 86780; 86803; 87811; 93005; 93010